=== PATIENT | female | born 1960 | race Caucasian/White ===

== ENCOUNTER 2023-12-03 10:38 | Emergency (ER) | payer MEDICARE ==
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
[2023-12-03 11:19] VITALS: RESP 18; TEMP 98.7
--- NOTE | 2023-12-03 11:48 | XRAY ---
Indication: Pain. Comparison: None 3 view left shoulder demonstrates tiny left lung calcified granulomas and epidural leads terminating T7. No other bony, articular, or soft tissue abnormalities.
[2023-12-03] MEDS ORDERED: TORAdol 30 mg Injection ONE (12:25)
[2023-12-03] MEDS: TORAdol 30 mg Injection IM ONE (12:26)
[2023-12-03 13:05] VITALS: BP 120/59; PULSE 60
[2023-12-03 13:29] VITALS: O2SAT 96
== END 2023-12-03 13:48 | disposition home or self-care (01) ==
LOC: ED 10:38
DX: Z04.1 Encounter for examination and observation following transport accident (principal); J84.10 Pulmonary fibrosis, unspecified; M25.512 Pain in left shoulder; Z79.85 Long-term (current) use of injectable non-insulin antidiabetic drugs; Z79.899 Other long term (current) drug therapy
CPT/HCPCS: 73030; 96372; 99285; J1885